=== PATIENT | male | born 1945 | race Caucasian/White ===

== ENCOUNTER 2017-10-15 06:20 | Inpatient (IN) ==
[2017-10-15] MEDS ORDERED: *HR* Propofol 200 MG/20 ML VIAL IVP ONE (06:51)
[2017-10-15] MEDS ORDERED: Lidocaine -MPF 2% 2 ML VIAL ONE (06:51)
[2017-10-15] MEDS ORDERED: Lidocaine -MPF 4% 5 ML AMPUL ONE (06:52)
--- NOTE | 2017-10-15 06:56 | Anesthesia Evaluation PreOp ---
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 Other Medical History: Denies Any Significant HX, Diabetes Type II Anesthesia History: No Prior Anesthetic Complications, Past Anesthesia (s/p gallbladder, TKA) Alcohol Use: none Drug use: none Medications and Allergies 3 Allergy/AdvReac Type Severity Reaction Status Date / Time No Known Allergies Allergy Unverified 11/09/15 08:47 - Meds/Allergy Pre-op Review Medications Reviewed: Yes Allergies Reviewed: Yes Beta Blockers on Current Med List: No Anesthesia Results - Labs Laboratory Tests 10/14/17 10/14/17 10/14/17 11:20 11:20 11:20 WBC 5.7 Hgb 15.2 Hct 43.9 Plt Count 314 PT 19.2 H INR 1.8 APTT 36.0 Sodium 137 Potassium 3.9 Chloride 105 Carbon Dioxide 27 BUN 18 Creatinine 0.94 - Imaging EKG: report reviewed, image reviewed (sinus with RBBB) Anesthesia Exam Weight: 84 kg NPO (# of Hours): over 8 hours - HEENT Pupil (Motor): Pupils equal Mallampati: II Denture Type: Upper: Partial, Lower: Partial Oral Opening: Greater than 3 - Cardiac Rhythm: Regular Murmur: None - Pulmonary Breath Sounds: bilateral Clear Respiratory Effort: Symmetrical Anesthesia Assess/Plan ASA Score: 2 Modified Halle Scale for Level of Consciousness: Cooperative, oriented, and tranquil Anesthetic Plan: General Monitoring Plan: Standard Monitors Recovery Plan: PACU (Discussed GA, risks, agreed to proceed.)
[2017-10-15] MEDS ORDERED: CeFAZolin Syr 2,000MG/20 ML 2,000 MG/20 ML SYRINGE IVPB ONE (06:59)
[2017-10-15] MEDS ORDERED: Dexamethasone 4 MG/ML VIAL ONE (07:00)
[2017-10-15] MEDS ORDERED: *HR* Succinylcholine 200 MG/10 ML VIAL IVP ONE (07:00)
[2017-10-15] MEDS ORDERED: Ringers Solution, Lactated 1,000 ML IVC SCH ×2 (07:00→14:06)
[2017-10-15] MEDS ORDERED: Ondansetron 4 MG/2 ML VIAL ONE (07:00)
[2017-10-15] MEDS ORDERED: *HR* Remifentanil 1 MG VIAL IVP ONE ×2 (07:01→10:19)
[2017-10-15] MEDS ORDERED: *HR* FentaNYL (PF) 100 MCG/2 ML VIAL ONE ×2 (07:08→12:33)
[2017-10-15] MEDS ORDERED: *HR* Midazolam HCl 2 MG/2 ML VIAL ONE (07:08)
--- NOTE | 2017-10-15 07:43 | History & Physical Report ---
Date of Encounter: 10/15/17 Time of Encounter: 07:40 24 Hour HP Update - Instructions Instructions: If the History and Physical is less than 30 days old and was completed prior to A.M. admission and or procedure and has NOT been updated on calendar day of procedure please complete this update prior to performing procedure. - Update Patient reports changes in Medical Condition: No Changes in examination, assessment, or condition: No Changes in Medication: No Preop tests/diagnostics Reviewed: Yes Pre-Op MRSA Screen: Negative Surgery Remains Indicated: Yes Consent for Planned Operative Procedure(s) Verified: Yes - Pre-Operative Checklist Preoperative Checklist Indicated: No Prophylactic Antibiotic Ordered: Yes Home Medications Include Beta Brittney: No Beta Brittney Taken Today (Day of Surgery): No Beta Brittney Taken Yesterday (Day Prior to Surgery): No Is VTE Prophylaxis Indicated?: Yes
[2017-10-15] MEDS ORDERED: *HR* Rocuronium Bromide 50 MG/5 ML VIAL ONE (08:05)
--- NOTE | 2017-10-15 13:03 | Orthopedic Operative Note ---
Date of procedure: 10/15/17 Pre-op diagnosis: Degenerative scoliosis, lumbar stenosis, lumbar radiculopathy Post-op diagnosis: same Operation/Findings: Posterior lumbar interbody fusion L2-L5: The patient successfully underwent general endotracheal anesthesia. The patient was given antibiotics prior to the start of the procedure. Compression boots and stockings were used for deep vein thrombosis prophylaxis. A Alvarez catheter was placed. Leads for neuro monitoring were placed on the upper and lower extremities. This included the cranium. The neuro monitoring personnel confirmed there were satisfactory readings prior to the start of the procedure. The patient was turned prone on the Jose table. The back was prepped and draped in the usual sterile fashion. An incision was was marked and centered over the involvedL2-L5 levels in the mid line. The incision was deepened through the lumbar fascia. Bovie cautery and Del Toro elevators were used to reflect the paraspinal musculature at the lateral extent of the transverse processes of the involvedL2, L3, L4, and L5 levels. Tara clamps were placed over the spinousof L4 and L5 processes. An intraoperative lateral fluoroscopy graft was obtained. A conversation was held between the surgeon and radiologist and both confirmed we had the correct operative levels. We then placed pedicle screws in standard fashion with the aid of fluoroscopy and anatomic landmarks. Briefly a starter awl was used. A gearshift was subsequently used to enter the airplane pilot supervisor hole via a transpedicular route into the vertebral body. The airplane pilot supervisor hole was tapped with an undersized instrument, and subsequently eight 6.5 x 40 mm pedicle screws were placed bilaterally at the indicated [id number]. The screws were tested with the aid of the neurologic monitoring staff via pedicle screw stimulation. All reading suggested there was no significant cortical wall breech. The screws were also evaluated fluoro- graphically and appeared to be in satisfactory position. We then turned our attention to the decompression portion of the procedure. We removed the supraspinous and interspinous ligaments and subsequently the insertion of the ligamentum flavum on the undersurface of the proximal L4 lamina was dislodged with a curette. We then removed the ligamentum flavum as well as undercut theL4-5 facets at this L4-5 level to decompress the lateral recesses. We also performed a L4 laminectomy. After the decompression, which was over and above that which was required to place the interbody graft, the foramen and traversing roots at thisL4-5 level were found to be free and patent. We also took part of the medial facets in order to aid in the decompression. we then proceeded to the L3-L4 leand again performed removal of ligamentum flavum, undercut the L3-4 facets, did partial medial facetectomies, and performed an L3 laminectomy. We then moved proximally to the L2-3 level and performed a decompression in standard fashion including undercutting of the L2-3 facets, removal of ligamenum flavum, medial facetectomies, partial L2 laminectomy. We then protected the neural elements including the thecal sac and traversing nerve root on the left at L4-5 with a dural retractor. We made an annulotomy into the L4-L5 disc space and then removed entire disc material using Pituitary instruments. We trialed various size grafts after the endplates were prepared for graft insertion. A 10 x 26 enter body graft fit well within the L4-L5disc space. We obtained some bone from the left posterior superior iliac spine through us a separate incision and combined with this with the bone which we had saved from the laminectomies portion of the procedure. This autograft bone was first placed in the anterior portion of the L4-L5 disc space and additional bone was placed within the interbody graft spacer. We then placed the interbody graft spacer obliquely across the disc space towards the midline while protecting the neural elements with a root retractor. When the graft was found to be in satisfactory position the group chief operator was removed. We then copiously irrigated the wound. We then decorticated the L2, L3, L4, and L5 transverse processes as well as the facet joints of the involved L2-3, L3 -4, and L4-5 levels to aid in the posterolateral fusion. We placed autograft bone in the lateral gutters over these regions. We then placed rods within the screw heads of the involved l2-L5 levelslevels and first locked the distal screws and then subsequently locked the proximal screws. We then closed the wound in layers with 1 Vicryl for the fascia, 2-0 Vicryl. Subcutaneous tissue, and Dermabond was used for skin closure. Sterile dressings were placed over the wound. The patient was turned supine on a hospital bed and extubated. All sponge instruments and needle counts were correct at the end of the procedure. The patient tolerated the procedure well without complications. Anesthesia: GETA Surgeon: Khanh Huynh Jr Estimated blood loss (cc): 800 (400 cell saver returned) Condition: stable Disposition: PACU
[2017-10-15] MEDS ORDERED: *HR* Labetalol 20 MG/4 ML SYRINGE IVP PRN (13:22)
[2017-10-15] MEDS ORDERED: Acetaminophen IV 1,000 MG/100 ML INFUS..BTL IVPB ONE (13:22)
[2017-10-15] MEDS ORDERED: Metoclopramide 10 MG/2 ML VIAL IVP ONE (13:22)
[2017-10-15] MEDS ORDERED: Ondansetron 4 MG/2 ML VIAL IVP ONE (13:22)
[2017-10-15] MEDS: *HR* HYDROmorphone (PF) 1 MG/ML SYRINGE IVP PRN ×4 (13:25→13:45)
--- NOTE | 2017-10-15 13:25 | Anesthesia Evaluation Post Op ---
Date of Encounter: 10/15/17 Time of Encounter: 13:35 - Vital Signs Vital Signs: VSS - Lungs Lungs: Clear Ascult./Percussion - Airway Airway: Non-obstructed - Cardiovascular Regular Rate - Nausea Vomiting Nausea Vomiting: Not Present - Hydration Hydration: Ice chips, Alvarez catheter - Discharge PostOp Status: Transfer Patient to floor
[2017-10-15] MEDS ORDERED: *HR* HYDROmorphone (PF) 1 MG/ML SYRINGE ONE (13:26)
[2017-10-15] MEDS ORDERED: Ondansetron 4 MG/2 ML VIAL IVP PRN (14:06)
[2017-10-15] MEDS ORDERED: *HR* Morphine 2 MG/ML SYRINGE IVP PRN (14:06)
[2017-10-15] MEDS ORDERED: Naloxone 0.4 MG/ML INJ IVP PRN (14:06)
[2017-10-15] MEDS: CeFAZolin Premix DUPLEX 2,000 MG/50 ML BAG IVPB SCH (16:48)
[2017-10-15] MEDS: *HR* OxyCODONE Immed Rel 5 MG TABLET PO PRN ×2 (17:25→21:22)
[2017-10-15] MEDS: *HR* Metformin 500 MG TABLET PO SCH (21:17)
[2017-10-15] MEDS: *HR* Glimepiride 2 MG TABLET PO SCH (21:18)
[2017-10-16] MEDS: CeFAZolin Premix DUPLEX 2,000 MG/50 ML BAG IVPB SCH (00:08)
[2017-10-16] MEDS: *HR* OxyCODONE Immed Rel 5 MG TABLET PO PRN ×5 (03:44→20:37)
[2017-10-16 07:04] LABS: Basophils % 0.2 %; Eosinophils # 0.1 K/mcL (0.0-0.6); Eosinophils % 1.1 %; Hematocrit 35.9 % (37.5-50.1); Hemoglobin 12.1 g/dL (12.9-16.9); Immature Granulocytes % 0.2 % (0-4); Lymphocytes # 1.3 K/mcL (0.6-4.6); Lymphocytes % 20.2 %; Mean Corpuscular HGB Conc 33.7 g/dL (31.6-35.5); Mean Corpuscular Hemoglobin 30.1 pg (28.0-33.3); Mean Corpuscular Volume 89.3 fL (83.0-100.0); Mean Platelet Volume 9.7 fL (9.4-12.4); Monocytes # 0.8 K/mcL (0.0-1.3); Monocytes % 12.8 %; Neutrophils # 4.1 K/mcL (1.6-8.9); Platelet Count 230 K/mcL (140-400); Red Blood Count 4.02 M/mcL (4.19-5.50); Red Cell Distribution Width 13.6 % (11.5-14.5); Segmented Neutrophils % 65.5 %
[2017-10-16 07:19] LABS: BUN/Creatinine Ratio 15 (6-26); Blood Urea Nitrogen 13 mg/dL (8-26); Calcium 7.7 mg/dL (8.6-10.8); Carbon Dioxide 28 mEq/L (19-29); Chloride 105 mEq/L (98-109); Glucose 127 mg/dL (70-99); Osmolality,Calculated 290 (280-300); Potassium 3.3 mEq/L (3.5-4.5); Sodium 139 mEq/L (136-145); eGFR For African Americans > 60 (> 60); eGFR For Non-African Americans > 60 (> 60)
[2017-10-16] MEDS: Losartan/HCTZ 50-12.5 TABLET PO SCH (08:03)
[2017-10-16] MEDS: *HR* Metformin 500 MG TABLET PO SCH ×2 (08:03→20:37)
[2017-10-16] MEDS: *HR* Glimepiride 2 MG TABLET PO SCH ×2 (08:03→20:37)
[2017-10-16] MEDS: Multivit/Ca/Min/Fe/FA 1 TAB TABLET PO SCH (08:03)
[2017-10-16] MEDS: Vitamin B Complex/Vit C/Vit E 1 EACH TABLET PO SCH (08:03)
[2017-10-16] MEDS: (Glucosamine Sulfate Dipot Chlr [Glucosamine] 1,000 M PO SCH (08:04)
[2017-10-16] MEDS: (Cinnamon Bark [Cinnamon] 500 MG) PO SCH (08:04)
[2017-10-16] MEDS: (Turmeric Root Extract [Turmeric] 500 MG) PO SCH (08:04)
--- NOTE | 2017-10-16 13:26 | Spine Progress Note ---
Date of Encounter: 10/16/17 Time of Encounter: 13:25 Subjective Principal diagnosis: s/p lumbar fusion Interval history: The patient is without complaints. Afebrile vital signs are stable. Incision is clean dry and intact. Neurovascularly intact with regard to bilateral lower extremities. Fires all upper and lower extremity motor groups. Negative straight leg raise. Assessment :stable. Plan mobilize ,continue analgesics, discharge planning. Objective Vital signs: Vital Signs Temp Pulse Resp BP Pulse Ox 10/16/17 10:52 97.7 F 104 18 143/77 96 10/16/17 06:35 100.0 F H 92 18 124/71 93 10/16/17 03:52 97.4 F L 90 18 133/75 91 10/15/17 22:39 98.4 F 96 18 126/73 91 10/15/17 19:01 98.2 F 90 17 120/68 92 10/15/17 18:15 96 10/15/17 17:23 98.1 F 89 15 119/69 96 10/15/17 16:27 97.6 F 90 16 134/78 93 10/15/17 15:25 97.6 F 86 16 137/74 93 10/15/17 14:52 98.4 F 84 17 141/75 97 10/15/17 14:12 98.1 F 82 16 128/74 96 10/15/17 13:52 86 16 134/71 94 10/15/17 13:42 98.0 F 81 16 135/76 96 10/15/17 13:32 85 18 127/88 94 Intake and Output 10/15/17 10/16/17 10/16/17 23:59 07:59 15:59 Intake Total 1230 / 1230 840 / 840 Output Total 1550 / 1550 150 / 150 Balance -320 / -320 690 / 690 Intake: IV Fluids 50 / 50 Ancef Premix DUPLEX 2,000 mg In 50 / 50 50 ml @ 100 mls/hr IVPB Q8HR PAVAN Rx#:[id number] Oral 1180 / 1180 840 / 840 Output: Urine 150 / 150 Catheter 1550 / 1550 Other: Meal Dinner Breakfast Percent of Meal Consumed 25% 100% Blood Glucose* 218 120 316 - Labs CBC & BMP: 10/16/17 06:12 10/16/17 06:12 Labs: Abnormal lab results RBC 4.02 M/mcL (4.19-5.50) L 10/16/17 06:12 Hgb 12.1 g/dL (12.9-16.9) L D 10/16/17 06:12 Hct 35.9 % (37.5-50.1) L 10/16/17 06:12 Potassium 3.3 mEq/L (3.5-4.5) L 10/16/17 06:12 Glucose 127 mg/dL (70-99) H 10/16/17 06:12 POC Glucose 316 (58-89) H 10/16/17 10:53 Calcium 7.7 mg/dL (8.6-10.8) L 10/16/17 06:12 Consult Discharge Plan - Plan Referrals: Andrew Vásquez DO [Primary Care Provider] -
[2017-10-16] MEDS: Acetaminophen 325 MG TABLET PO PRN (15:30)
[2017-10-16] MEDS ORDERED: Dextrose Gel 15 GM PO PRN ×2 (16:46)
[2017-10-16] MEDS ORDERED: *HR* Dextrose 50 % in Water (Syg) 50 ML SYRINGE IVP PRN (16:46)
[2017-10-16] MEDS ORDERED: D5% in Water 1,000 ML IVC PRN (16:46)
[2017-10-16] MEDS: Insulin LISPRO 300 UNITS/3 ML VIAL SQ SCH ×2 (17:33→20:36)
[2017-10-16 17:40] LABS: Basophils % 0.2 %; Hematocrit 33.9 % (37.5-50.1); Hemoglobin 11.8 g/dL (12.9-16.9); Immature Granulocytes % 0.2 % (0-4); Lymphocytes # 0.8 K/mcL (0.6-4.6); Lymphocytes % 9.6 %; Mean Corpuscular HGB Conc 34.8 g/dL (31.6-35.5); Mean Corpuscular Hemoglobin 30.3 pg (28.0-33.3); Mean Corpuscular Volume 87.1 fL (83.0-100.0); Mean Platelet Volume 9.6 fL (9.4-12.4); Monocytes % 11.6 %; Neutrophils # 6.6 K/mcL (1.6-8.9); Platelet Count 227 K/mcL (140-400); Red Blood Count 3.89 M/mcL (4.19-5.50); Red Cell Distribution Width 13.5 % (11.5-14.5); Segmented Neutrophils % 78.4 %
[2017-10-16 21:51] LABS: Bilirubin,Urine Negative (Negative); Blood,Urine Negative (Negative); Clarity,Urine Clear (Clear); Color,Urine Yellow (Yellow); Glucose,Urine (UA) >=1000 mg/dL (Normal); Ketones,Urine Negative (Negative); Leukocyte Esterase,Urine Negative (Negative); Nitrite,Urine Negative (Negative); PH,Urine 6.5 pH Units (5.0-8.0); Protein,Urine Negative (Neg-Trace); Urobilinogen,Urine Normal (Normal)
[2017-10-17] MEDS: Acetaminophen 325 MG TABLET PO PRN ×2 (00:57→16:51)
[2017-10-17] MEDS: *HR* OxyCODONE Immed Rel 5 MG TABLET PO PRN ×4 (04:08→19:44)
[2017-10-17] MEDS: Insulin LISPRO 300 UNITS/3 ML VIAL SQ SCH ×4 (07:35→19:44)
[2017-10-17] MEDS: *HR* Glimepiride 2 MG TABLET PO SCH ×2 (09:24→19:44)
[2017-10-17] MEDS: *HR* Metformin 500 MG TABLET PO SCH ×2 (09:25→19:43)
[2017-10-17] MEDS: (Glucosamine Sulfate Dipot Chlr [Glucosamine] 1,000 M PO SCH (09:26)
[2017-10-17] MEDS: Vitamin B Complex/Vit C/Vit E 1 EACH TABLET PO SCH (09:26)
[2017-10-17] MEDS: (Turmeric Root Extract [Turmeric] 500 MG) PO SCH (09:26)
[2017-10-17] MEDS: Multivit/Ca/Min/Fe/FA 1 TAB TABLET PO SCH (09:26)
[2017-10-17] MEDS: Losartan/HCTZ 50-12.5 TABLET PO SCH (09:26)
[2017-10-17] MEDS: (Cinnamon Bark [Cinnamon] 500 MG) PO SCH (09:26)
--- NOTE | 2017-10-17 17:03 | Spine Progress Note ---
Date of Encounter: 10/17/17 Time of Encounter: 17:02 Subjective Principal diagnosis: s/p lumbar fusion Interval history: The patient is without complaints. Has had intermittent temperature spikes. Incision is clean dry and intact. Neurovascularly intact with regard to bilateral lower extremities. Fires all upper and lower extremity motor groups. Assessment :stable. Plan mobilize ,continue analgesics, discharge planning. Workup including urinalysis and chest x-ray essentially negative. Chest x-ray just showed some atelectasis. We will continue Tylenol when necessary and encourage incentive spirometry. If temperatures continue well advance workup. Objective Vital signs: Vital Signs Temp Pulse Resp BP Pulse Ox 10/17/17 16:25 102.2 F H 102 16 122/59 95 10/17/17 11:28 99.4 F 101 16 139/63 96 10/17/17 07:36 96 10/17/17 07:06 98.9 F 89 15 127/74 96 10/17/17 04:41 98.9 F 103 18 137/67 92 10/17/17 00:46 101.0 F H 10/16/17 23:52 100.5 F H 103 16 116/65 92 10/16/17 19:46 100.2 F H 87 14 121/59 94 10/16/17 17:31 99.7 F H Intake and Output 10/17/17 10/17/17 10/17/17 07:59 15:59 23:59 Intake Total 480 / 480 250 / 250 Output Total 200 / 200 Balance 480 / 480 50 / 50 Intake: Oral 480 / 480 250 / 250 Output: Urine 200 / 200 Other: Meal Lunch Percent of Meal Consumed 90% # Voids 2 Blood Glucose* 139 242 203 - Labs CBC & BMP: 10/16/17 17:08 10/16/17 06:12 Labs: Abnormal lab results RBC 3.89 M/mcL (4.19-5.50) L 10/16/17 17:08 Hgb 11.8 g/dL (12.9-16.9) L 10/16/17 17:08 Hct 33.9 % (37.5-50.1) L 10/16/17 17:08 Potassium 3.3 mEq/L (3.5-4.5) L 10/16/17 06:12 Glucose 127 mg/dL (70-99) H 10/16/17 06:12 POC Glucose 203 (58-89) H 10/17/17 16:29 Calcium 7.7 mg/dL (8.6-10.8) L 10/16/17 06:12 Urine Glucose (UA) >=1000 mg/dL (Normal) H 10/16/17 21:46 Consult Discharge Plan - Plan Referrals: Amada Santiago PAC [Physician Senior Process Engineer] - 10/29/17 11:00 am Khanh Huynh Jr, MD [Partnered Physician] - 01/17/18 11:30 am Tara Osullivan MD [Partnered Physician] - 03/12/18 10:30 am Andrew Vásquez DO [Primary Care Provider] - 03/12/18 9:15 am
[2017-10-18] MEDS: *HR* OxyCODONE Immed Rel 5 MG TABLET PO PRN ×3 (01:58→12:47)
[2017-10-18] MEDS: Multivit/Ca/Min/Fe/FA 1 TAB TABLET PO SCH (08:13)
[2017-10-18] MEDS: *HR* Metformin 500 MG TABLET PO SCH (08:13)
[2017-10-18] MEDS: Losartan/HCTZ 50-12.5 TABLET PO SCH (08:13)
[2017-10-18] MEDS: *HR* Glimepiride 2 MG TABLET PO SCH (08:13)
[2017-10-18] MEDS: Vitamin B Complex/Vit C/Vit E 1 EACH TABLET PO SCH (08:13)
[2017-10-18] MEDS: Insulin LISPRO 300 UNITS/3 ML VIAL SQ SCH ×2 (08:14→12:30)
[2017-10-18] MEDS: (Turmeric Root Extract [Turmeric] 500 MG) PO SCH (08:15)
[2017-10-18] MEDS: (Cinnamon Bark [Cinnamon] 500 MG) PO SCH (08:15)
[2017-10-18] MEDS: (Glucosamine Sulfate Dipot Chlr [Glucosamine] 1,000 M PO SCH (08:15)
[2017-10-18 12:05] VITALS: BP 127/67
--- NOTE | 2017-10-18 15:32 | Discharge Summary ---
Date of Encounter: 10/18/17 Time of Encounter: 15:30 - Discharge Diagnosis (1) Degenerative scoliosis in adult patient Priority: Primary Status: Chronic (2) Lumbar stenosis with neurogenic claudication Priority: Secondary Status: Chronic (3) Lumbar radiculopathy Priority: Secondary Status: Chronic - Discharge Medications Prescriptions: OxyCODONE Immed Rel [Roxicodone 5 MG] 5 mg PO Q4HR PRN #30 tablet PRN Reason: Severe pain Home Medications: Cinnamon Bark [Cinnamon] 500 mg PO DAILY 10/15/17 [History] Glimepiride [Amaryl] 1 mg PO BID 10/15/17 [History] Glucosamine Sulfate Dipot Chlr [Glucosamine] 1,000 mg PO DAILY 10/15/17 [History ] Losartan/Hydrochlorothiazide [Losartan-Hctz 50-12.5 mg Tab] 1 tab PO DAILY 10/15 [History] Multivitamin [One Daily Essential] 1 tab PO DAILY 10/15/17 [History] Pravastatin Sodium [Pravachol] 40 mg PO HS 10/15/17 [History] Turmeric Root Extract [Turmeric] 500 mg PO DAILY 10/15/17 [History] Vitamin B Complex [B Complex] 1 tab PO DAILY 10/15/17 [History] Warfarin [Coumadin] 2.5 mg PO TUWE 10/15/17 [History] Warfarin [Coumadin] 5 mg PO SUMOTHFRSA 10/15/17 [History] metFORMIN [Glucophage] 500 mg PO BID 10/15/17 [History] OxyCODONE Immed Rel [Roxicodone 5 MG] 5 mg PO Q4HR PRN #30 tablet 10/18/17 [Rx] Allergies/Adverse Reactions: 3 Allergy/AdvReac Type Severity Reaction Status Date / Time No Known Allergies Allergy Verified 10/15/17 07:19 Labs on day of discharge: Labs from last 24 hours 10/18/17 10/17/17 12:00 16:29 POC Glucose 201 H 203 H - Impressions ITS Impressions Lumbar Spine X-Ray 10/15/17 00:00 IMPRESSION: Recent postsurgical change of lumbar spine fusion at L2-5. D/ / Otf Etienne MD / Otf Etienne MD Interpreting Provider: Otf Etienne MD Chest X-Ray 10/16/17 16:45 IMPRESSION: Minimal left basilar atelectasis. D/ / 10/16/2017 19:13:38 Faisal Hobbs MD / david Interpreting Provider: Faisal Hobbs MD Lumbar Spine X-Ray 10/18/17 08:30 IMPRESSION: Postsurgical changes from L2-L5 posterior fusion. Grade 1 retrolisthesis of L2 on L3 some of which could be rotational and positional in etiology. Moderate multilevel degenerative changes without acute osseous abnormality. D/ / 10/18/2017 08:37:54 Rylee Oliveira MD / ajit Interpreting Provider: Rylee Oliveira MD Date of admission: 10/15/17 14:07 Primary care physician: Andrew Vásquez Consults: 10/15/17 14:06 Consult to Occupational Therapy [CONS] Routine Comment: Evaluate, develop and implement POC Reason for Consult: Postoperative rehabilitation Consult to Physical Therapy [CONS] Routine Comment: Evaluate, develop and implement POC Reason for Consult: Postoperative rehabilitation Consult to Warehouse Shift Supervisor [CONS] Routine Reason for SW Consult: Postoperative rehabilitation Consult to Spine Navigator [CONS] [CONS] Routine - Patient Status Disposition: Transfer SNF Condition: Good Functional capacity at discharge: uses cane/walker Overall status at discharge: patient is back to baseline - Discharge Instructions Follow Up With: Amada Santiago PAC [Physician Mica Plate Layer] - 10/29/17 11:00 am Khanh Huynh Jr, MD [Partnered Physician] - 01/17/18 11:30 am Tara Osullivan MD [Partnered Physician] - 03/12/18 10:30 am Andrew Vásquez DO [Primary Care Provider] - 03/12/18 9:15 am - Diet and Activity Activity: as per physical therapy Diet: advance to your usual diet - Hospital Course Hospital course: Mr. Earl is a 71 year old maleThe patient had an uneventful postoperative course. Progressed from intravenous analgesic needs to oral analgesic needs only. Remained neurovascularly intact and mobilized satisfactorily. All intraoperative and/or postoperative radiographic studies were satisfactory. Patient is discharged with plan for rehabilitation and follow-up in 2 weeks post discharge on analgesic medication and patient's home medications. - Time Spent with Patient Total time spent providing and/or coordinating discharge services: - VTE Documentation of Mechanical Device: Intermittent pneumatic compression device
== END 2017-10-18 16:22 | DRG 460 ==
LOC: SAMDAY 06:20 → 3NENU 14:07
PROVIDERS: ADMIT Orthopaedic Surgery Orthopaedic Surgery of the Spine; ATTEND Orthopaedic Surgery Orthopaedic Surgery of the Spine

== ENCOUNTER 2020-09-16 11:32 | Inpatient (IN) ==
[2020-09-16] MEDS ORDERED: Lidocaine -MPF 2% 2 ML VIAL ONE (11:51)
[2020-09-16] MEDS ORDERED: Famotidine 20 MG/2 ML VIAL IVP ONE (12:03)
[2020-09-16] MEDS ORDERED: Celecoxib 200 MG CAPSULE PO ONE (12:03)
[2020-09-16] MEDS ORDERED: *HR* OxyCODONE Immed Rel 5 MG TABLET PO PRN (12:03)
[2020-09-16] MEDS ORDERED: *HR* Labetalol 20 MG/4 ML SYRINGE IVP PRN (12:03)
[2020-09-16] MEDS ORDERED: Promethazine Syrup 6.25 MG/5 ML PO PRN (12:03)
[2020-09-16] MEDS ORDERED: Ondansetron 4 MG/2 ML VIAL IVP PRN ×2 (12:03→16:58)
[2020-09-16] MEDS ORDERED: CeFAZolin Syr 2,000MG/20 ML 2,000 MG/20 ML SYRINGE IVPB ONE (12:08)
[2020-09-16] MEDS ORDERED: Ringers Solution, Lactated 1,000 ML IVC SCH ×2 (12:15→16:58)
[2020-09-16 12:26] LABS: INR 1.1; Prothrombin Time 13.2 Seconds (9.4-12.1)
[2020-09-16] MEDS ORDERED: *HR* FentaNYL (PF) 100 MCG/2 ML VIAL ONE (12:56)
[2020-09-16] MEDS ORDERED: Ropivacaine/PF 0.5% 30 ML VIAL ONE (12:57)
[2020-09-16] MEDS ORDERED: Vancomycin 1,250 MG/262.5 ML IV.SOLN IVPB ONE (13:00)
[2020-09-16] MEDS ORDERED: Dexamethasone 4 MG/ML VIAL ONE (13:16)
[2020-09-16] MEDS ORDERED: Ondansetron 4 MG/2 ML VIAL ONE (13:16)
[2020-09-16] MEDS ORDERED: Tranexamic Acid 1,000 MG/10 ML VIAL ONE (13:18)
[2020-09-16] MEDS ORDERED: Vancomycin 1,000 MG VIAL ONE (13:24)
[2020-09-16] MEDS ORDERED: Ethanol\\Acetic Acid\\Na Ace\\Ben 1,000 ML IRRIG.SOLN IR ONE (13:24)
[2020-09-16] MEDS ORDERED: *HR* HYDROMORPHONE 2 MG/ML VIAL ONE (14:05)
[2020-09-16] MEDS ORDERED: TOTAL JOINT MIXTURE (100ML) INTRAART ONE (14:40)
[2020-09-16] MEDS ORDERED: Povidone-Iodine 45 ML, Sodium Chloride IRRigation 1,000 ML IR ONE (14:40)
[2020-09-16] MEDS: *HR* HYDROmorphone (PF) 1 MG/ML SYRINGE IVP PRN ×6 (15:14→15:45)
[2020-09-16 16:07] LABS: Hematocrit 40.9 % (37.5-50.1); Hemoglobin 13.8 g/dL (12.9-16.9)
[2020-09-16] MEDS ORDERED: *HR* Promethazine 25 MG/ML VIAL IM PRN (16:58)
[2020-09-16] MEDS ORDERED: Sennosides 8.6 MG TABLET PO PRN (16:58)
[2020-09-16] MEDS ORDERED: D5% in Water 1,000 ML IVC PRN (16:58)
[2020-09-16] MEDS ORDERED: Naloxone 0.4 MG/ML INJ IVP PRN (16:58)
[2020-09-16] MEDS ORDERED: Dextrose Gel 15 GM/37.5 ML TUBE PO PRN ×2 (16:58)
[2020-09-16] MEDS ORDERED: *HR* Dextrose 50 % in Water (Vial) 50 ML VIAL IVP PRN (16:58)
[2020-09-16] MEDS ORDERED: NON-FORMULARY MEDICATION 1 EACH EACH (Multivitamin [One Daily Essential] 1 TAB) PO SCH (16:58)
[2020-09-16] MEDS ORDERED: MOM Conc 10 ML UD.LIQ PO PRN (16:58)
[2020-09-16] MEDS: *HR* Enoxaparin 30 MG/0.3 ML SYRINGE SQ SCH (17:43)
[2020-09-16] MEDS: Ascorbic Acid 500 MG TABLET PO SCH (17:43)
[2020-09-16] MEDS: *HR* Glimepiride 2 MG TABLET PO SCH (17:43)
[2020-09-16] MEDS: Insulin LISPRO 300 UNITS/3 ML VIAL SQ SCH ×2 (17:46→20:51)
[2020-09-16] MEDS: *HR* Metformin 500 MG TABLET PO SCH (20:50)
[2020-09-16] MEDS: CeFAZolin 2 GM/120 ML BAG IVPB SCH (22:40)
[2020-09-17] MEDS ORDERED: Vancomycin 1,250 MG/262.5 ML IV.SOLN IVPB ONE (00:30)
[2020-09-17] MEDS: CeFAZolin 2 GM/120 ML BAG IVPB SCH (05:13)
[2020-09-17] MEDS: *HR* Enoxaparin 30 MG/0.3 ML SYRINGE SQ SCH ×2 (05:14→17:37)
[2020-09-17 07:36] LABS: Basophils % 0.1 %; Eosinophils % 0.1 %; Hematocrit 36.6 % (37.5-50.1); Lymphocytes # 0.5 K/mcL (0.6-4.6); Lymphocytes % 4.2 %; Mean Corpuscular HGB Conc 32.8 g/dL (31.6-35.5); Mean Corpuscular Hemoglobin 30.2 pg (28.0-33.3); Monocytes # 1.3 K/mcL (0.0-1.3); Monocytes % 11.3 %; Neutrophils # 9.6 K/mcL (1.6-8.9); Platelet Count 233 K/mcL (140-400); Red Blood Count 3.98 M/mcL (4.19-5.50); Red Cell Distribution Width 13.6 % (11.5-14.5); Segmented Neutrophils % 83.3 %; White Blood Count 11.5 K/mcL (4.3-11.1)
[2020-09-17 07:46] LABS: BUN/Creatinine Ratio 21 (6-26); Blood Urea Nitrogen 23 mg/dL (8-23); Calcium 7.9 mg/dL (8.6-10.3); Carbon Dioxide 23 mEq/L (23-29); Chloride 108 mEq/L (98-107); Glucose 151 mg/dL (70-105); Osmolality,Calculated 289 (280-300); Potassium 4.5 mEq/L (3.5-5.1); Sodium 136 mEq/L (136-145); eGFR For African Americans > 60 (> 60); eGFR For Non-African Americans > 60 (> 60)
[2020-09-17] MEDS: *HR* Metformin 500 MG TABLET PO SCH ×2 (08:31→20:22)
[2020-09-17] MEDS: hydroCHLOROthiazide 25 MG TABLET PO SCH (08:31)
[2020-09-17] MEDS: Multivit/Ca/Min/Fe/FA 1 TAB TABLET PO SCH (08:31)
[2020-09-17] MEDS: *HR* OxyCODONE Immed Rel 5 MG TABLET PO PRN ×2 (08:31→15:44)
[2020-09-17] MEDS: Ascorbic Acid 500 MG TABLET PO SCH ×2 (08:32→17:37)
[2020-09-17] MEDS: Insulin LISPRO 300 UNITS/3 ML VIAL SQ SCH ×4 (08:32→20:22)
[2020-09-17] MEDS: *HR* SitaGLIPtin 100 MG TABLET PO SCH (08:32)
[2020-09-17] MEDS ORDERED: Warfarin perPT PO PRN (17:16)
[2020-09-17] MEDS: *HR* Glimepiride 2 MG TABLET PO SCH (17:38)
[2020-09-17] MEDS ORDERED: *HR* Warfarin 5 MG TABLET PO ONE (18:00)
[2020-09-18 01:04] LABS: Basophils % 0.2 %; Eosinophils # 0.4 K/mcL (0.0-0.6); Eosinophils % 4.8 %; Hematocrit 35.2 % (37.5-50.1); Hemoglobin 11.9 g/dL (12.9-16.9); Immature Granulocytes % 12.2 % (0-4); Lymphocytes # 0.7 K/mcL (0.6-4.6); Lymphocytes % 8.7 %; Mean Corpuscular HGB Conc 33.8 g/dL (31.6-35.5); Mean Corpuscular Volume 91.7 fL (83.0-100.0); Platelet Count 216 K/mcL (140-400); Red Blood Count 3.84 M/mcL (4.19-5.50); Red Cell Distribution Width 13.7 % (11.5-14.5); Segmented Neutrophils % 62.1 %; White Blood Count 8.3 K/mcL (4.3-11.1)
[2020-09-18 01:06] LABS: Neutrophils # 5.2 K/mcL (1.6-8.9)
[2020-09-18 01:07] LABS: INR 1.1; Prothrombin Time 13.1 Seconds (9.4-12.1)
[2020-09-18 01:22] LABS: BUN/Creatinine Ratio 22 (6-26); Blood Urea Nitrogen 24 mg/dL (8-23); Calcium 8.3 mg/dL (8.6-10.3); Carbon Dioxide 24 mEq/L (23-29); Chloride 106 mEq/L (98-107); Glucose 124 mg/dL (70-105); Osmolality,Calculated 289 (280-300); Potassium 3.7 mEq/L (3.5-5.1); Sodium 137 mEq/L (136-145); eGFR For African Americans > 60 (> 60); eGFR For Non-African Americans > 60 (> 60)
[2020-09-18 01:43] LABS: Platelet Estimate Normal (Normal)
[2020-09-18] MEDS: *HR* OxyCODONE Immed Rel 5 MG TABLET PO PRN ×4 (01:53→23:36)
[2020-09-18] MEDS: *HR* Enoxaparin 30 MG/0.3 ML SYRINGE SQ SCH ×2 (06:05→17:50)
[2020-09-18] MEDS: *HR* Metformin 500 MG TABLET PO SCH ×2 (08:51→20:19)
[2020-09-18] MEDS: Ascorbic Acid 500 MG TABLET PO SCH ×2 (08:51→17:50)
[2020-09-18] MEDS: hydroCHLOROthiazide 25 MG TABLET PO SCH (08:51)
[2020-09-18] MEDS: *HR* SitaGLIPtin 100 MG TABLET PO SCH (08:51)
[2020-09-18] MEDS: Multivit/Ca/Min/Fe/FA 1 TAB TABLET PO SCH (08:52)
[2020-09-18] MEDS: Insulin LISPRO 300 UNITS/3 ML VIAL SQ SCH ×4 (08:52→20:19)
[2020-09-18] MEDS: *HR* Glimepiride 2 MG TABLET PO SCH (17:50)
[2020-09-18] MEDS ORDERED: *HR* Warfarin 5 MG TABLET PO ONE (18:00)
[2020-09-18] MEDS: HYDROcodone BIT/Homatropine 5 MG TABLET PO PRN (20:19)
[2020-09-19 01:36] LABS: INR 1.2; Prothrombin Time 13.7 Seconds (9.4-12.1)
[2020-09-19] MEDS: *HR* Enoxaparin 30 MG/0.3 ML SYRINGE SQ SCH (05:50)
[2020-09-19] MEDS: HYDROcodone BIT/Homatropine 5 MG TABLET PO PRN (05:50)
[2020-09-19] MEDS: *HR* SitaGLIPtin 100 MG TABLET PO SCH (08:26)
[2020-09-19] MEDS: Insulin LISPRO 300 UNITS/3 ML VIAL SQ SCH ×4 (08:26→21:26)
[2020-09-19] MEDS: *HR* Metformin 500 MG TABLET PO SCH ×2 (08:26→21:25)
[2020-09-19] MEDS: Multivit/Ca/Min/Fe/FA 1 TAB TABLET PO SCH (08:26)
[2020-09-19] MEDS: Ascorbic Acid 500 MG TABLET PO SCH ×2 (08:27→17:22)
[2020-09-19] MEDS: hydroCHLOROthiazide 25 MG TABLET PO SCH (08:27)
[2020-09-19] MEDS: *HR* OxyCODONE Immed Rel 5 MG TABLET PO PRN ×4 (08:32→21:25)
[2020-09-19 16:33] LABS: Adenovirus Not Detected (Not Detect); Bordetella Pertussis Not Detected (Not Detect); Chlamydophila pneumoniae Not Detected (Not Detect); Coronavirus 229E Not Detected (Not Detect); Coronavirus HKU1 Not Detected (Not Detect); Coronavirus NL63 Not Detected (Not Detect); Coronavirus OC43 Not Detected (Not Detect); Human Metapneumovirus Not Detected (Not Detect); Human Rhinovirus/Enterovirus Not Detected (Not Detect); Influenza A Subtype 2009 H1 Not Detected (Not Detect); Influenza B Not Detected (Not Detect); Mycoplasma pneumoniae Not Detected (Not Detect); Parainfluenza Virus 1 Not Detected (Not Detect); Parainfluenza Virus 2 Not Detected (Not Detect); Parainfluenza Virus 3 Not Detected (Not Detect); Parainfluenza Virus 4 Not Detected (Not Detect); Respiratory Syncytial Virus Not Detected (Not Detect); SARS-CoV-2 Not Detected (Not Detect)
[2020-09-19] MEDS: *HR* Glimepiride 2 MG TABLET PO SCH (17:22)
[2020-09-19] MEDS ORDERED: *HR* Enoxaparin 80 MG/0.8 ML SYRINGE SQ SCH (18:00)
[2020-09-19] MEDS ORDERED: *HR* Warfarin 5 MG TABLET PO ONE (18:00)
[2020-09-19 22:41] VITALS: BP 166/77
[2020-09-20] MEDS ORDERED: *HR* Warfarin 2.5 MG TABLET PO SCH (11:45)
== END 2020-09-20 01:00 | DRG 470 ==
LOC: SAMDAY 11:32 → 3NENU 16:04
PROVIDERS: ADMIT Orthopaedic Surgery; ATTEND Orthopaedic Surgery